=== PATIENT | female | born 1965 | race African-American/Black ===

== ENCOUNTER 2020-07-10 10:03 | Emergency (ER) | payer MEDICARE, MEDICAID ==
[~2020-07-10] VITALS: Ht 165.1 cm; Wt 55.0 kg
[2020-07-10] MEDS ORDERED: MORPHINE SULFATE 4 MG/ML CPJ (NOT FOR IM USE) IV STA (11:16)
[2020-07-10] MEDS ORDERED: ONDANSETRON HCL 4MG/2ML INJ IV STA (11:16)
[2020-07-10] MEDS ORDERED: SODIUM CHLORIDE 0.9% 1,000 ML IV ONE (11:30)
[2020-07-10] MEDS ORDERED: ALBUTEROL (0.5%) 2.5MG/0.5ML NEB HHN ONE (11:30)
[2020-07-10 11:45] LABS: BASOPHILS % 0.4 % (0.0-2.0); CHLORIDE 111 mEq/L (98-107); HEMATOCRIT. 46.5 % (36.0-48.0); HEMOGLOBIN. 15.7 g/dL (12.0-16.0); MEAN CORPUSCULAR VOLUME 94.7 fL (81.0-99.0); MEAN PLATELET VOLUME 9.4 fl (7.4-10.4); MONOCYTES % 3.2 % (2.0-8.0); NEUTROPHILS % 84.4 % (40.0-76.0); PLATELET 193 x1000/uL (130-400); PROTHROMBIN TIME 11.2 sec (9.6-11.0); RED CELL DISTRIBUTION WIDTH 13.6 % (11.6-14.6)
[2020-07-10 11:49] LABS: CLARITY URINE CLEAR (CLEAR); COLOR URINE YELLOW (YELLOW); KETONES URINE TRACE (NEGATIVE); LEUKOCYTE ESTERASE URINE NEGATIVE (NEGATIVE); NITRITE URINE NEGATIVE (NEGATIVE); OCCULT BLOOD URINE NEGATIVE (NEGATIVE); PROTEIN URINE NEGATIVE (NEGATIVE); UROBILINOGEN URINE 0.2 E.U./dL (0.2-1.0)
[2020-07-10 13:00] VITALS: BP 160/83
== END 2020-07-10 13:56 | disposition home or self-care (01) ==
LOC: ER 10:12
DX: R10.9 Unspecified abdominal pain (principal); I10 Essential (primary) hypertension; Z88.6 Allergy status to analgesic agent; Z87.442 Personal history of urinary calculi
CPT/HCPCS: 36415; 74176; 80053; 81003; 83690; 85025; 85610; 93005; 94640; 96374; 96375; 99285; J2270; J2405; J7030

== ENCOUNTER 2023-03-16 23:01 | Emergency (ER) | payer MEDICARE, MEDICAID ==
[~2023-03-16] VITALS: Ht 170.2 cm; Wt 70.0 kg
[~2023-03-16 23:01] MED LIST: ALBU18HF2 INH; BUPR-114 PO; CHOL200059 PO; CLOP75TA33 PO; CYAN-50 MT; DOCU-150 PO; GABA-532 PO; HYDR-4135 PO; LOSA1TAB34 PO; NIFE-32 PO; SENN-371 PO
[2023-03-16 23:03] VITALS: BP 0/0; O2SAT 0
[2023-03-16 23:09] VITALS: PULSE 96; RESP 20
[2023-03-16] MEDS ORDERED: DEXTROSE 50% WATER 50ML SYRINGE IV ONE (23:21)
[2023-03-16] MEDS ORDERED: NOREPINEPHRINE 8MG/250ML PMX 250 ML IV STA (23:26)
[2023-03-16] MEDS ORDERED: VANCOMYCIN 1G PREMIX 200 ML IV ONE (23:30)
[2023-03-16] MEDS ORDERED: PANTOPRAZOLE SODIUM 40 MG/VIAL IV ONE (23:30)
[2023-03-16] MEDS ORDERED: SODIUM CHLORIDE 0.9% 1000ML BAG (SEPSIS BOLUS) IV ONE (23:30)
[2023-03-16] MEDS ORDERED: PIPERACILLIN/TAZ 3.375G PREMIX 50 ML IV ONE (23:30)
[2023-03-16] MEDS ORDERED: NOREPINEPHRINE BITARTRATE/D5W 250 ML IV NR (23:45)
[2023-03-17 00:39] LABS: BASOPHILS % 0.5 % (0.0-2.0); EOSINOPHILS % 1.2 % (0.0-5.0); LYMPHOCYTES % 59.6 % (20.0-50.0); MEAN CORPUSCULAR HEMOGLOBIN 28.8 pg (28.0-32.0); MEAN CORPUSCULAR HGB CONC 28.3 g/dL (31.0-37.0); MEAN CORPUSCULAR VOLUME 101.7 fL (81.0-99.0); MEAN PLATELET VOLUME 9.2 fl (7.4-10.4); MONOCYTES % 6.8 % (2.0-8.0); NEUTROPHILS % 31.9 % (40.0-76.0); PLATELET 81 x1000/uL (130-400); RED BLOOD CELL COUNT 1.78 mill/uL (4.2-5.4); RED CELL DISTRIBUTION WIDTH 25.4 % (11.6-14.6); WHITE BLOOD COUNT 8.3 x1000/uL (4.5-11.0)
[2023-03-17 00:51] LABS: HCG SCREEN NEGATIVE
[2023-03-17 00:56] LABS: ALANINE AMINOTRANSFERASE 60 IU/L (10-49); ALBUMIN 1.7 g/dL (3.2-4.8); ASPARTATE AMINOTRANSFERASE 58 IU/L (<34); BILIRUBIN TOTAL < 0.2 mg/dL (0.1-1.0); CALCIUM 10.8 mg/dL (8.7-10.4); CARBON DIOXIDE 17 mEq/L (21-32); CHLORIDE 109 mEq/L (98-107); DIFFERENTIAL COMMENT 1; POTASSIUM 4.9 mEq/L (3.5-5.1); SODIUM 148 mEq/L (136-145); UREA NITROGEN BLOOD 10 mg/dL (9-23)
[2023-03-17 00:59] LABS: ADD RBC MORPHOLOGY YES; HEMATOCRIT. 18.2 % (36.0-48.0); HEMOGLOBIN. 5.1 g/dL (12.0-16.0)
[2023-03-17 01:00] LABS: LACTIC ACID 10.3 mmol/L (0.4-2.0)
[2023-03-17 01:01] LABS: ETHANOL BLOOD < 10 mg/dL (<10); GLUCOSE 606 mg/dL (70-105); PROTEIN TOTAL 2.7 g/dL (6.0-8.3); TROPONIN I HIGH SENSITIVITY 35 ng/L (3.0-34)
[2023-03-17 01:12] LABS: BG BASE EXCESS -24.6 mmol/L (-2.0-2.0); BG CARBOXYHEMOGLOBIN 2.1 % (0.5-1.5); BG DEOXYHEMOGLOBIN 1.1 % (0.0-5.0); BG FRACTION INSPIRED OXYGEN 100; BG HCO3 ACT 7.7 mmol/L (22.0-26.0); BG METHEMOGLOBIN 0.6 % (0.0-1.5); BG OXYGEN SATURATION 98.9 % (92.0-98.5); BG OXYHEMOGLOBIN 96.2 % (94.0-97.0); BG PCO2 55.1 mmHg (35.0-45.0); BG PH 6.766 (7.350-7.450); BG SAMPLE SITE LEFT RADIAL; BG TOTAL HEMOGLOBIN 4.9 g/dL (12.0-18.0); BG VENT MODE VENT - AC
[2023-03-17 01:36] LABS: ANISOCYTOSIS 1+; HYPOCHROMASIA 1+; MICROCYTOSIS 1+; PLATELET ESTIMATE DECREASED
== END 2023-03-17 01:40 ==
LOC: ER 23:01 → CANBEDREQ 03-17 04:01
DX: I46.9 Cardiac arrest, cause unspecified (principal); I10 Essential (primary) hypertension; Z98.890 Other specified postprocedural states; Z86.59 Personal history of other mental and behavioral disorders
CPT/HCPCS: 82962 ×2; 36415; 71045 ×2; 74018; 31500; 93005; 36556; 96368; 92950; 96365; 96366; 99291; 80053; 80320; 84703; 83605; 85025; 85379; 86850; 86900; 86901; 86920; 84484; 84145; 82805; 82375; 36600; J3490; C9113; J2543; J7030; J3370; 36430; 94002; P9016; G0480